=== PATIENT | male | born 1945 | race Caucasian/White ===

== ENCOUNTER → 2020-01-21 08:47 | Outpatient (BNVA) | payer MEDICARE, SELFPAY | PROVIDERS: PCP Internal Medicine; Visit Provider Urology | DX: Z43.5 Encounter for attention to cystostomy (principal); R33.9 Retention of urine, unspecified; N31.9 Neuromuscular dysfunction of bladder, unspecified | CPT/HCPCS: 51705; 99213 ==

== ENCOUNTER → 2020-02-19 08:50 | Outpatient (BNVA) | payer MEDICARE, SELFPAY | PROVIDERS: PCP Internal Medicine; Visit Provider Urology | DX: Z43.5 Encounter for attention to cystostomy (principal); N31.9 Neuromuscular dysfunction of bladder, unspecified; N39.0 Urinary tract infection, site not specified | CPT/HCPCS: 51701; 51705; 51710; 99212 ==

== ENCOUNTER 2020-02-19 10:01 | Outpatient (REF) | payer MEDICARE, SELFPAY ==
[2020-02-19 13:59] LABS: MANUAL DIFF FLAG NO
[2020-02-19 14:04] LABS: Basophils Absolute Auto 0.1 X10*3/uL (0.0-0.2); Basophils Percent Auto 0.6 % (0-2); Eosinophils Absolute Auto 0.3 X10*3/uL (0.0-0.4); Eosinophils Percent Auto 2.6 % (0-4); Hemoglobin 14.9 g/dl (14.0-18.0); Imm Gran Abs Auto 0.04 X10*3/uL (0.00-0.03); Imm Gran Pct Auto 0.4 % (0.0-0.4); Lymphocytes Absolute Auto 3.5 X10*3/uL (1.2-4.9); Lymphocytes Percent Auto 31.9 % (20-40); Mean Corpuscular HGB Conc 32.4 g/dl (31.0-36.0); Mean Corpuscular Hemoglobin 30.1 pg (27.0-33.0); Mean Corpuscular Volume 92.9 fL (80-98); Monocytes Absolute Auto 0.8 X10*3/uL (0.1-1.2); Neutrophils Absolute Auto 6.3 X10*3/uL (2.0-8.3); Neutrophils Percent Auto 57.5 % (45-73); Platelet Count 263 X10*3/uL (160-400); Red Blood Count 4.95 X10*6/uL (4.60-5.80)
[2020-02-19 14:47] LABS: Alanine Aminotransferase 29 U/L (0-40); Albumin Level 4.1 g/dL (3.5-5.0); Alkaline Phosphatase 79 U/L (39-117); Anion Gap 17 (12-20); Aspartate Amino Transferase 23 U/L (5-37); Bilirubin Total 0.6 mg/dL (0.0-1.0); Blood Urea Nitrogen 14 mg/dL (9-16); Calcium 8.6 mg/dL (8.4-10.2); Carbon Dioxide 22 mmol/L (22-29); Chloride 104 mmol/L (96-108); Cholesterol 123 mg/dL; Estimated Glomerular Filt Rate > 60; Glucose Fasting 162 mg/dL (60-99); HDL Cholesterol 50 mg/dL; LDL Cholesterol Calculated 22 mg/dl; Potassium 4.7 mmol/l (3.3-5.1); Sodium 138 mmol/L (135-145); Total Protein 6.8 g/dL (6.5-8.0); Triglycerides 256 mg/dL
[2020-02-19 14:49] LABS: T4 Thyroxine 5.5 ug/dL (4.5-12.0); Thyroid Stimulating Hormone 4.04 uIU/mL (0.32-4.0)
[2020-02-19 15:13] LABS: Folate 15.3 ng/mL (> or = 4.0); Vitamin B12 682 pg/mL (200-900)
== END 2020-02-19 10:02 | disposition home or self-care (01) ==
LOC: HO.10HDL 10:01
PROVIDERS: Visit Provider Internal Medicine
DX: E11.65 Type 2 diabetes mellitus with hyperglycemia (principal); G47.33 Obstructive sleep apnea (adult) (pediatric); F41.9 Anxiety disorder, unspecified; I25.10 Atherosclerotic heart disease of native coronary artery without angina pectoris; G20 Parkinson's disease; I10 Essential (primary) hypertension; N31.9 Neuromuscular dysfunction of bladder, unspecified; E78.00 Pure hypercholesterolemia, unspecified
CPT/HCPCS: 36415; 80053; 80061; 82607; 82746; 84436; 84443; 85025

== ENCOUNTER → 2020-03-23 15:00 | Outpatient (BNVA) | payer MEDICARE, SELFPAY | PROVIDERS: PCP Internal Medicine; Visit Provider Urology | DX: Z76.89 Persons encountering health services in other specified circumstances (principal) | CPT/HCPCS: 51705; 99212 ==

== ENCOUNTER → 2020-04-27 09:47 | Outpatient (BNVA) | payer MEDICARE, SELFPAY | PROVIDERS: PCP Internal Medicine; Visit Provider Urology | DX: N31.9 Neuromuscular dysfunction of bladder, unspecified (principal) | CPT/HCPCS: 51705; 51710; 99212 ==

== ENCOUNTER → 2020-06-01 09:47 | Outpatient (BNVA) | payer MEDICARE, SELFPAY | PROVIDERS: PCP Internal Medicine; Visit Provider Urology | DX: Z43.5 Encounter for attention to cystostomy (principal); N31.9 Neuromuscular dysfunction of bladder, unspecified; R33.9 Retention of urine, unspecified | CPT/HCPCS: 51705; 99212 ==

== ENCOUNTER → 2020-07-06 10:24 | Outpatient (BNVA) | payer MEDICARE, SELFPAY | PROVIDERS: PCP Internal Medicine; Visit Provider Urology | DX: R33.9 Retention of urine, unspecified (principal) | CPT/HCPCS: 51701; 51705; 99212 ==

== ENCOUNTER → 2020-08-13 09:57 | Outpatient (BNVA) | payer MEDICARE, SELFPAY | PROVIDERS: PCP Internal Medicine; Visit Provider Urology | DX: N31.9 Neuromuscular dysfunction of bladder, unspecified (principal); R33.9 Retention of urine, unspecified | CPT/HCPCS: 51701; 51705; 99212 ==

== ENCOUNTER 2020-08-17 10:17 | Outpatient (REF) | payer MEDICARE, SELFPAY ==
[2020-08-17 11:24] LABS: MANUAL DIFF FLAG NO
[2020-08-17 11:28] LABS: Basophils Absolute Auto 0.1 X10*3/uL (0.0-0.2); Basophils Percent Auto 0.5 % (0-2); Eosinophils Absolute Auto 0.3 X10*3/uL (0.0-0.4); Eosinophils Percent Auto 2.8 % (0-4); Hematocrit 47.1 % (42-52); Hemoglobin 15.1 g/dl (14.0-18.0); Imm Gran Abs Auto 0.04 X10*3/uL (0.00-0.03); Imm Gran Pct Auto 0.4 % (0.0-0.4); Lymphocytes Absolute Auto 3.6 X10*3/uL (1.2-4.9); Lymphocytes Percent Auto 33.8 % (20-40); Mean Corpuscular HGB Conc 32.1 g/dl (31.0-36.0); Mean Corpuscular Hemoglobin 29.3 pg (27.0-33.0); Mean Corpuscular Volume 91.5 fL (80-98); Mean Platelet Volume 9.9 fL (9.4-12.4); Monocytes Absolute Auto 0.8 X10*3/uL (0.1-1.2); Neutrophils Absolute Auto 5.9 X10*3/uL (2.0-8.3); Neutrophils Percent Auto 55.5 % (45-73); Platelet Count 305 X10*3/uL (160-400); Red Blood Count 5.15 X10*6/uL (4.60-5.80); Red Cell Distribution Width 14.4 % (11.0-16.0); White Blood Count 10.7 X10*3/uL (4.8-10.8)
[2020-08-17 11:39] LABS: Estimated Average Glucose 183 mg/dL
[2020-08-17 11:46] LABS: Alanine Aminotransferase 27 U/L (0-40); Albumin Level 4.4 g/dL (3.5-5.0); Alkaline Phosphatase 83 U/L (39-117); Anion Gap 16 (12-20); Aspartate Amino Transferase 22 U/L (5-37); Bilirubin Total 0.9 mg/dL (0.0-1.0); Blood Urea Nitrogen 19 mg/dL (9-16); Calcium 9.3 mg/dL (8.4-10.2); Carbon Dioxide 24 mmol/L (22-29); Chloride 102 mmol/L (96-108); Cholesterol 129 mg/dL; Estimated Glomerular Filt Rate > 60; Glucose Random 193 mg/dL (60-115); HDL Cholesterol 50 mg/dL; LDL Cholesterol Calculated 25 mg/dl; Potassium 4.8 mmol/L (3.3-5.1); Sodium 137 mmol/L (135-145); Total Protein 7.2 g/dL (6.5-8.0); Triglycerides 270 mg/dL
[2020-08-17 12:10] LABS: Free T4 (Free Thyroxine) 0.81 ng/dL (0.71-1.85); Thyroid Stimulating Hormone 4.42 uIU/mL (0.32-4.0)
== END 2020-08-17 10:18 | disposition home or self-care (01) ==
LOC: HO.HMGCLDS 10:17
PROVIDERS: PCP Internal Medicine; Visit Provider Internal Medicine
DX: E78.00 Pure hypercholesterolemia, unspecified (principal); E11.65 Type 2 diabetes mellitus with hyperglycemia
CPT/HCPCS: 36415; 80053; 80061; 83036; 84439; 84443; 85025

== ENCOUNTER → 2020-09-17 09:29 | Outpatient (BNVA) | payer MEDICARE, SELFPAY | PROVIDERS: PCP Internal Medicine; Visit Provider Urology | DX: R33.9 Retention of urine, unspecified (principal) | CPT/HCPCS: 51701; 51705; 99212 ==

== ENCOUNTER → 2020-10-22 09:57 | Outpatient (BNVA) | payer MEDICARE, SELFPAY | PROVIDERS: PCP Internal Medicine; Visit Provider Urology | DX: N31.9 Neuromuscular dysfunction of bladder, unspecified (principal); R33.8 Other retention of urine | CPT/HCPCS: 51701; 51705; 99212 ==

== ENCOUNTER → 2020-11-10 11:09 | Outpatient (BNVA) | payer MEDICARE, SELFPAY | PROVIDERS: PCP Internal Medicine; Visit Provider Urology | DX: T83.9XXA Unspecified complication of genitourinary prosthetic device, implant and graft, initial encounter (principal) | CPT/HCPCS: 51700; 99212 ==

== ENCOUNTER → 2020-11-30 08:46 | Outpatient (BNVA) | payer MEDICARE, SELFPAY | DX: Z43.5 Encounter for attention to cystostomy (principal); N31.9 Neuromuscular dysfunction of bladder, unspecified | CPT/HCPCS: 51705 ==

== ENCOUNTER 2020-12-14 11:02 | Outpatient (REF) | payer MEDICARE, SELFPAY ==
[2020-12-14 12:48] LABS: Free T4 (Free Thyroxine) 0.83 ng/dL (0.71-1.85); Thyroid Stimulating Hormone 3.64 uIU/mL (0.32-4.0)
== END 2020-12-14 11:03 | disposition home or self-care (01) ==
LOC: HO.LAB 11:02
PROVIDERS: PCP Internal Medicine; Visit Provider Internal Medicine
DX: E03.8 Other specified hypothyroidism (principal)
CPT/HCPCS: 36415; 84439; 84443

== ENCOUNTER → 2020-12-22 13:11 | Outpatient (BNVA) | payer MEDICARE, SELFPAY | PROVIDERS: PCP Internal Medicine; Visit Provider Urology | DX: R33.9 Retention of urine, unspecified (principal) | CPT/HCPCS: 51705 ==

== ENCOUNTER → 2021-01-27 10:18 | Outpatient (BNVA) | payer MEDICARE, SELFPAY | PROVIDERS: PCP Internal Medicine; Visit Provider Urology | DX: R33.9 Retention of urine, unspecified (principal) | CPT/HCPCS: 51705 ==

== ENCOUNTER → 2021-03-02 10:15 | Outpatient (BNVA) | payer MEDICARE, SELFPAY | PROVIDERS: PCP Internal Medicine; Visit Provider Urology | DX: N31.9 Neuromuscular dysfunction of bladder, unspecified (principal); N39.0 Urinary tract infection, site not specified; E11.22 Type 2 diabetes mellitus with diabetic chronic kidney disease; E11.65 Type 2 diabetes mellitus with hyperglycemia; I25.10 Atherosclerotic heart disease of native coronary artery without angina pectoris; I12.9 Hypertensive chronic kidney disease with stage 1 through stage 4 chronic kidney disease, or unspecified chronic kidney disease; N18.9 Chronic kidney disease, unspecified; E78.00 Pure hypercholesterolemia, unspecified; E55.9 Vitamin D deficiency, unspecified; G20 Parkinson's disease; Z46.6 Encounter for fitting and adjustment of urinary device; Z91.030 Bee allergy status | CPT/HCPCS: 51705; 99212 ==

== ENCOUNTER → 2021-04-19 15:05 | Outpatient (BNVA) | payer MEDICARE, SELFPAY | PROVIDERS: PCP Internal Medicine; Visit Provider Urology | DX: Z43.5 Encounter for attention to cystostomy (principal) | CPT/HCPCS: 51705 ==

== ENCOUNTER → 2021-05-31 09:58 | Outpatient (BNVA) | payer MEDICARE, SELFPAY | PROVIDERS: PCP Internal Medicine; Visit Provider Urology | DX: N31.9 Neuromuscular dysfunction of bladder, unspecified (principal) | CPT/HCPCS: 51705 ==

== ENCOUNTER → 2021-07-12 09:58 | Outpatient (BNVA) | payer MEDICARE, SELFPAY | PROVIDERS: PCP Internal Medicine; Visit Provider Urology | DX: N31.9 Neuromuscular dysfunction of bladder, unspecified (principal) | CPT/HCPCS: 51705 ==

== ENCOUNTER → 2021-08-22 08:46 | Outpatient (BNVA) | payer MEDICARE, SELFPAY | PROVIDERS: PCP Internal Medicine; Visit Provider Urology | DX: N31.9 Neuromuscular dysfunction of bladder, unspecified (principal) | CPT/HCPCS: 51705 ==